=== PATIENT | female | born 1970 | race Caucasian/White ===

== ENCOUNTER 2019-11-11 17:26 | Emergency (ER) | payer BC ==
[~2019-11-11] VITALS: Ht 172.7 cm; Wt 60.0 kg
[2019-11-11 18:47] VITALS: BP 123/84
== END 2019-11-11 18:48 | disposition home or self-care (01) ==
LOC: ER 17:26
DX: S06.0X0A Concussion without loss of consciousness, initial encounter (principal); S09.90XA Unspecified injury of head, initial encounter; R42 Dizziness and giddiness; R11.0 Nausea; R51 Headache; W22.8XXA Striking against or struck by other objects, initial encounter; Y93.89 Activity, other specified; Y92.89 Other specified places as the place of occurrence of the external cause; Y99.8 Other external cause status
CPT/HCPCS: 93005; 99284